=== PATIENT | female | born 1990 | race Caucasian/White ===

== ENCOUNTER → 2019-03-29 | Outpatient (CLI) | payer BC ==
--- NOTE | 2019-03-29 12:40 | XR ---
EXAMINATION TYPE: XR Hip Bilateral Complete DATE OF EXAM: 03/29/2019 CLINICAL HISTORY: Bilateral hip pain TECHNIQUE: AP and frogleg views of bilateral hips were obtained. COMPARISON: None. FINDINGS: There is no acute fracture/dislocation evident in either hip. The joint space in both hip s appear within normal limits. No cam deformity of either femoral head neck junction. No suspicious sclerotic or lytic osseous lesion. The overlying soft tissue appears unremarkable. IMPRESSION: There is no acute fracture or dislocation in either hip.
== END | disposition home or self-care (01) ==
LOC: RADXRMAIN 12:04
PROVIDERS: ATTEND Internal Medicine
DX: M25.551 Pain in right hip (principal); M25.552 Pain in left hip
CPT/HCPCS: 73521

== ENCOUNTER 2022-02-16 06:55 | Emergency (ER) | payer BC ==
[2022-02-16 07:01] VITALS: RESP 18
[2022-02-16] MEDS ORDERED: FAMOTIDINE 20 MG/2 ML VIAL IV STA (07:22)
[2022-02-16] MEDS ORDERED: methylPREDNISolone SOD SUCCI 125 MG/2 ML VIAL IV STA (07:22)
[2022-02-16] MEDS ORDERED: diphenhydrAMINE 50 MG/ML 1 ML VIAL IVP STA (07:22)
--- NOTE | 2022-02-16 07:25 | ED ---
General Adult HPI - General Chief complaint: Allergic Reaction Stated complaint: Allergic Reaction Time Seen by Provider: 02/16/22 07:06 Source: patient, RN notes reviewed Mode of arrival: ambulatory Limitations: no limitations - History of Present Illness Initial comments: Patient is a pleasant 31-year-old female presenting to the emergency department with concerns with rash. Onset of symptoms was yesterday morning. Symptoms have slowly progressed since that time. Patient did have some improvement with Benadryl yesterday. Patient does have some lip swelling this morning. No swelling of the tongue or throat. No dyspnea. Patient did have similar symptoms with azithromycin reaction a decade ago. Patient is unable to identify anything new exposure that could cause her symptoms today. - Related Data Home Medications Medication Instructions Recorded Confirmed Pnv,Calcium 72/Iron/Folic Acid 1 tab PO DAILY 07/27/17 07/27/17 [ Plus Tablet] Previous Rx's Medication Instructions Recorded predniSONE [Deltasone] 20 mg PO BID #10 tab 02/16/22 Allergies Allergy/AdvReac Type Severity Reaction Status Date / Time azithromycin [From Zmax] Allergy Rash/Hives Verified 02/16/22 06:56 cefazolin Allergy Rash/Hives Verified 02/16/22 06:56 Penicillins Allergy Rash/Hives Verified 02/16/22 06:56 Review of Systems ROS Statement: Those systems with pertinent positive or pertinent negative responses have been documented in the HPI. ROS Other: All systems not noted in ROS Statement are negative. Constitutional: Denies: fever Eyes: Denies: eye pain ENT: Denies: ear pain Respiratory: Denies: cough Cardiovascular: Denies: chest pain Endocrine: Denies: fatigue Gastrointestinal: Denies: abdominal pain Genitourinary: Denies: dysuria Musculoskeletal: Denies: back pain Skin: Reports: as per HPI, rash, pruritus Neurological: Denies: headache Past Medical History Past Medical History: No Reported History History of Any Multi-Drug Resistant Organisms: None Reported Past Surgical History: Orthopedic Surgery Additional Past Surgical History / Comment(s): Ingrown toenails bilateral, voluntary termination of age 18 Past Anesthesia/Blood Transfusion Reactions: No Reported Reaction Past Psychological History: Anxiety, Bipolar, Depression Smoking Status: Never smoker Past Alcohol Use History: None Reported Past Drug Use History: None Reported - Past Family History Father Additional Family Medical History / Comment(s): Father is age 54 with no medical problems Mother Family Medical History: No Reported History Additional Family Medical History / Comment(s): Mother is alive at age 48 with no major medical problems. Patient has 1 brother 23 years of age and his sister 13 years of age that are healthy. She does not have any children. General Exam Limitations: no limitations General appearance: alert, in no apparent distress Head exam: Present: normocephalic Eye exam: Present: normal appearance ENT exam: Present: other (Mild angioedema of the upper and lower lip. No angio edema of the tongue or pharynx or uvula) Respiratory exam: Present: normal lung sounds bilaterally. Absent: respiratory distress, wheezes Cardiovascular Exam: Present: regular rate, normal rhythm GI/Abdominal exam: Present: soft. Absent: tenderness Extremities exam: Present: normal inspection Neurological exam: Present: alert Psychiatric exam: Present: normal affect, normal mood Skin exam: Present: urticaria Course Vital Signs 02/16/22 02/16/22 02/16/22 06:57 07:32 08:04 Temperature 97.8 F Pulse Rate 115 H 69 Respiratory 18 18 18 Rate Blood Pressure 118/79 O2 Sat by Pulse 96 97 Oximetry Medical Decision Making - Medical Decision Making Patient reevaluated and improved. Angioedema of the upper lip has resolved. Edema of the lower lip has improved. Rash has improved. Patient does feel better. Still no dyspnea. Patient updated on results and need for follow-up. Disposition Clinical Impression: Angioedema, Urticaria Disposition: HOME SELF-CARE Condition: Stable Instructions (If sedation given, give patient instructions): Urticaria (ED), Angioedema (ED) Additional Instructions: For prescription and sent to pharmacy. Please do follow-up with primary care physician in the next couple days for recheck. Return for any difficulty breathing, swelling of the throat or tongue, increased lip swelling, worsening symptoms or other concerns. [id number] Benadryl every 6 hours for the next 5 days. Prescriptions: predniSONE [Deltasone] 20 mg PO BID #10 tab Is patient prescribed a controlled substance at d/c from ED?: No Referrals: Keily Rob MD [Primary Care Provider] - 1-2 days Time of Disposition: 08:29
[2022-02-16 08:44] VITALS: BP 121/81; PULSE 71; TEMP 97.9
== END 2022-02-16 08:43 | disposition home or self-care (01) ==
LOC: EC 06:55
DX: T78.3XXA Angioneurotic edema, initial encounter (principal); F41.9 Anxiety disorder, unspecified; F31.9 Bipolar disorder, unspecified; Z88.0 Allergy status to penicillin; Z88.1 Allergy status to other antibiotic agents
CPT/HCPCS: 99283; 96374; 96375 ×2; J1200; J2930

== ENCOUNTER → 2022-03-13 | Outpatient (CLI) | payer BC ==
[2022-03-13 19:25] LABS: Basophils # (A) 0.04 X 10*3/uL (0.00-0.10); Basophils % (A) 0.4 %; Eosinophils # (A) 0.02 X 10*3/uL (0.04-0.35); Eosinophils % (A) 0.2 %; HCT 43.8 % (37.2-46.3); Immature Grans, Automated 0.4 %; Lymphocytes % (A) 11.6 %; MCH 28.7 pg (27.0-32.0); MCV 89.8 fL (80.0-97.0); Mean Platelet Volume 8.9 fL (9.5-12.2); Monocytes # (A) 0.16 X 10*3/uL (0.20-1.00); Monocytes % (A) 1.7 %; NRBC Per 100 WBC 0 /100 WBCS (0.0-0.0); Neutrophils # (A) 8.13 X 10*3/uL (1.80-7.70); Neutrophils % (A) 85.7 %; Platelet Count 332 X 10*3/uL (140-440); RBC 4.88 X 10*6/uL (4.10-5.20); RDW 12.4 % (11.5-14.5); WBC 9.49 X 10*3/uL (4.50-10.00)
[2022-03-14 10:26] LABS: T4, Free (Free Thyroxine) 1.18 ng/dL (0.800-1.800)
[2022-03-14 14:50] LABS: Thyroid Peroxidase Antibodies 9.7 U/mL (0.0-33.0)
== END | disposition home or self-care (01) ==
LOC: LABWHC1 12:41
PROVIDERS: ATTEND Allergy & Immunology
DX: L50.9 Urticaria, unspecified (principal); R53.83 Other fatigue
CPT/HCPCS: 36415; 83520; 84439; 84443; 85025; 86376; 86800

== ENCOUNTER → 2023-07-31 | Outpatient (CLI) | payer BC | END | disposition home or self-care (01) | LOC: LABWHC1 09:51 | PROVIDERS: ATTEND Family Medicine | DX: L50.8 Other urticaria (principal) | CPT/HCPCS: 36415 ==